=== PATIENT | female | born 1960 | race Caucasian/White ===

== ENCOUNTER 2017-04-08 15:43 | Emergency (ER) | payer BC, SELFPAY ==
[2017-04-08 16:04] VITALS: BP 119/83; PULSE 104; RESP 18; TEMP 36.8; O2SAT 97; BMI 29.0
--- NOTE | 2017-04-08 16:39 | HMH.EDUTC ---
[facility] [place] Disposition Clinical Impression: Acute viral sinusitis Disposition: Home, Self-Care Condition on Discharge: Good Instructions: DI for Sinusitis Additional Instructions: * OK to continue Sudafed. * STOP afrin and start Flonase 2 sprays each nostril daily to help with nasal congestion, sinus and ear pressure/inflammation * Lots of fluids * Sleep elevated * Humidifier/vaporizer * Sinus rinses * You had a solu-medrol injection in clinic. Start steroid pills tomorrow. As we discussed, steroids have risks and side effects. You report you have taken them before and they help. Follow up with primary care for new, worsening or persistent symptoms. Would expectant improvement over the next 2-3 days. Prescriptions: Fluticasone Propionate [Flonase 50mcg nasal spray 16gm] 2 spr NS DAILY #1 bottle methylPREDNISolone [Medrol] 4 mg PO DIRECTED #1 tab.ds.pk Time of Disposition: 17:19 Medical Decision Making Vital Signs: 04/08/17 16:04 Temperature 98.2 F Temperature Source Temporal Artery Scan Pulse Rate [Brachial] 104 H Respiratory Rate 18 Blood Pressure [Right Arm] 119/83 Blood Pressure Mean [Right Arm] 95 Blood Pressure Source [Right Arm] Automatic Cuff Blood Pressure Position [Right Arm] Sitting 02 Sat by Pulse Oximetry 97 - Lab Data Lab results reviewed: Yes: I reviewed the patient's lab results. Lab Results 04/08/17 16:44: Influenza Type A Ag Negative, Influenza Type B Ag Negative Orders (Tests/Meds): ED MEDICATIONS Discontinued Medications Generic Name Dose Route Start Last Admin Trade Name Matq PRN Reason Stop Dose Admin Methylprednisolone Sodium Succinate 125 mg 04/08/17 17:16 04/08/17 17:35 Solu-Medrol 125mg/2ml Vial IM 04/08/17 17:17 125 mg ONCE ONE Administration - Micheal Inquiry Pt receiving controlled substance: No - Reevaluation(s) Time: 17:15 Reevaluation #1: Discussed neg flu. Pt adamant she want steroid injection. Described them further. Rvwd risk and benefits. Further discussed POC for home. Still wants steroid injection. [facility] [place] HPI - General Stated complaint: head cold Time Seen by Provider: 04/08/17 16:40 Mode of Arrival: Ambulatory Source of Information: Patient Limitations: No Limitations Description of Symptoms (Recalled from Triage Doc. by RN): SINUS CONGESTION AND PRESSURE COUGHING UP MUCUS X 5 DAYS HEENT Symptoms (Recalled from RN notes): Yes Resp Symptoms (Recalled from RN notes): Yes Skin Symptoms (Recalled from RN notes): No MS Symptoms (Recalled from RN notes): No Functional Status (Recalled from RN notes): NA - History of Present Illness Provider Complaint: c/o I am sure I just have a head cold but it is not getting better and I need a steroid shot . Reports rhinorrhea, nasal congestion, PND, cough, sinus pressure starting Thursday, 4 days ago. Minimal brief improvement with ibuprofen, mucinex, afrin, benadryl and sudafed. Last time I had this the steroid shot worked so well. I would like to have a steroid shot. Achy at times, occasional chills. Unsure about fever. Son with same symptoms 4 days prior and still feeling sick. - Related Data Home Medications Medication Instructions Recorded Confirmed Buspirone HCl [Buspar 10mg tablet] 10 mg PO DAILY 04/08/17 04/08/17 Levothyroxine Sodium 50 mcg PO DAILY 04/08/17 04/08/17 [Levothyroxine 50mcg (0.05mg) Tab] Rosuvastatin Calcium [Rosuvastatin 10 mg PO DAILY 04/08/17 04/08/17 Calcium] Sertraline HCl [Zoloft 100mg 100 mg PO DAILY 04/08/17 04/08/17 tablet] Previous Rx's Medication Instructions Recorded Fluticasone Propionate [Flonase 2 spr NS DAILY #1 bottle 04/08/17 50mcg nasal spray 16gm] methylPREDNISolone [Medrol] 4 mg PO DIRECTED #1 tab.ds.pk 04/08/17 Allergies Allergy/AdvReac Type Severity Reaction Status Date / Time No Known Allergies Allergy Verified 04/08/17 16:08 - Worker's Comp Is this a Worker's Comp case?: No H History I have re
--- NOTE | 2017-04-08 16:44 | ED_ITS ---
[facility] [place] Clinical Impression: Acute viral sinusitis Disposition: Home, Self-Care Condition on Discharge: Good Instructions: DI for Sinusitis Additional Instructions: * OK to continue Sudafed. * STOP afrin and start Flonase 2 sprays each nostril daily to help with nasal congestion, sinus and ear pressure/inflammation * Lots of fluids * Sleep elevated * Humidifier/vaporizer * Sinus rinses * You had a solu-medrol injection in clinic. Start steroid pills tomorrow. As we discussed, steroids have risks and side effects. You report you have taken them before and they help. Follow up with primary care for new, worsening or persistent symptoms. Would expectant improvement over the next 2-3 days. Prescriptions: Fluticasone Propionate [Flonase 50mcg nasal spray 16gm] 2 spr NS DAILY #1 bottle methylPREDNISolone [Medrol] 4 mg PO DIRECTED #1 tab.ds.pk Time of Disposition: 17:19 Medical Decision Making Vital Signs: 04/08/17 16:04 Temperature 98.2 F Temperature Source Temporal Artery Scan Pulse Rate [Brachial] 104 H Respiratory Rate 18 Blood Pressure [Right Arm] 119/83 Blood Pressure Mean [Right Arm] 95 Blood Pressure Source [Right Arm] Automatic Cuff Blood Pressure Position [Right Arm] Sitting 02 Sat by Pulse Oximetry 97 - Lab Data Lab results reviewed: Yes: I reviewed the patient's lab results. Lab Results 04/08/17 16:44: Influenza Type A Ag Negative, Influenza Type B Ag Negative Orders (Tests/Meds): ED MEDICATIONS Discontinued Medications Generic Name Dose Route Start Last Admin Trade Name Matq PRN Reason Stop Dose Admin Methylprednisolone Sodium Succinate 125 mg 04/08/17 17:16 04/08/17 17:35 Solu-Medrol 125mg/2ml Vial IM 04/08/17 17:17 125 mg ONCE ONE Administration - Micheal Inquiry Pt receiving controlled substance: No - Reevaluation(s) Time: 17:15 Reevaluation #1: Discussed neg flu. Pt adamant she want steroid injection. Described them further. Rvwd risk and benefits. Further discussed POC for home. Still wants steroid injection. [facility] [place] - General Stated complaint: head cold Time Seen by Provider: 04/08/17 16:40 Mode of Arrival: Ambulatory Source of Information: Patient Limitations: No Limitations Description of Symptoms (Recalled from Triage Doc. by RN): SINUS CONGESTION AND PRESSURE COUGHING UP MUCUS X 5 DAYS HEENT Symptoms (Recalled from RN notes): Yes Resp Symptoms (Recalled from RN notes): Yes Skin Symptoms (Recalled from RN notes): No MS Symptoms (Recalled from RN notes): No Functional Status (Recalled from RN notes): NA - History of Present Illness Provider Complaint: c/o I am sure I just have a head cold but it is not getting better and I need a steroid shot . Reports rhinorrhea, nasal congestion , PND, cough, sinus pressure starting Thursday, 4 days ago. Minimal brief improvement with ibuprofen, mucinex, afrin, benadryl and sudafed. Last time I had this the steroid shot worked so well. I would like to have a steroid shot. Achy at times, occasional chills. Unsure about fever. Son with same symptoms 4 days prior and still feeling sick. - Related Data Home Medications Medication Instructions Recorded Confirmed Buspirone HCl [Buspar 10mg tablet] 10 mg PO DAILY 04/08/17 04/08/17 Levothyroxine Sodium 50 mcg PO DAILY 04/08/17 04/08/17 [Levothyroxine 50mcg (
[2017-04-08 17:00] LABS: UTC Influenza A Antigen Negative (Negative); UTC Influenza B Antigen Negative (Negative)
== END 2017-04-08 17:40 | disposition home or self-care (01) ==
PROVIDERS: Emergency Provider Nurse Practitioner Family
DX: J01.90 Acute sinusitis, unspecified (principal); B97.89 Other viral agents as the cause of diseases classified elsewhere; Z79.899 Other long term (current) drug therapy; E78.5 Hyperlipidemia, unspecified; E03.9 Hypothyroidism, unspecified; F32.9 Major depressive disorder, single episode, unspecified
CPT/HCPCS: 87804; 96372; 99202; 99282